=== PATIENT | female | born 1965 | race African-American/Black ===

== ENCOUNTER 2017-07-14 01:35 | Emergency (ER) | payer OTHER ==
[~2017-07-14] VITALS: Ht 152.4 cm; Wt 106.1 kg
[~2017-07-14 01:35] MED LIST: AMLO10TA2 PO; CLON0.1T PO; CYCL10TA2 PO; FURO-69 PO; FURO40TA4 PO; GABA-585 PO; GLIM2TAB2 PO; INSU100I17 SQ; INSU100I27 SQ; LOSA50TA6 PO; PENI500T PO; TRIA1TAB5 PO
[2017-07-14 01:54] VITALS: BP 189/88
[2017-07-14 02:41] LABS: BILIRUBIN,URINE NEGATIVE (NEG); GLUCOSE,URINE 100 mg/dL (NEG); NITRITE,URINE NEGATIVE (NEG); PROTEIN,URINE >=300 mg/dL (NEG-TRACE); UROBILINOGEN,URINE 0.2 mg/dL (0.2 mg/dL)
[2017-07-14 02:41] LABS: BASO % 0 % (0-3); EOS % 2 % (0-3); HEMATOCRIT 35.1 % (36.0-47.0); HEMOGLOBIN 11.6 g/dL (12.0-15.5); LYMPH % 19 % (24-48); MEAN CORPUSCULAR HEMOGLOBIN 28 pg (25-35); MEAN CORPUSCULAR HGB CONC 33 g/dL (31-37); MEAN CORPUSCULAR VOLUME 85 fL (79-100); MONO % 8 % (0-9); NEUT % 70 % (31-73); PLATELET COUNT 347 x10^3/uL (140-400); RED BLOOD COUNT 4.15 x10^6/uL (3.50-5.40); RED CELL DISTRIBUTION WIDTH 24.1 % (11.5-14.5); WHITE BLOOD COUNT 10.4 x10^3/uL (4.0-11.0)
[2017-07-14 02:52] LABS: CALCIUM 9.3 mg/dL (8.5-10.1); CREATININE 2.4 mg/dL (0.6-1.0); GFR 25.9; POTASSIUM 4.1 mmol/L (3.5-5.1)
[2017-07-14 02:53] LABS: BACTERIA,URINE FEW /HPF (0-FEW); SQUAMOUS EPITHELIAL CELL,UR MANY /LPF
[2017-07-14 02:58] LABS: ALBUMIN/GLOBULIN RATIO 0.6 (1.0-1.7); MAGNESIUM 1.9 mg/dL (1.8-2.4); TOTAL BILIRUBIN 0.3 mg/dL (0.2-1.0)
[2017-07-14] MEDS ORDERED: FUROSEMIDE 40 MG/4 ML VIAL. IVP ONE (03:00)
[2017-07-14 03:17] LABS: PLT ESTIMATE ADEQUATE (ADEQUATE)
[2017-07-14 03:18] LABS: ANISOCYTOSIS MOD
--- NOTE | 2017-07-14 03:20 | PHYS DOC ---
Past Medical History Past Medical History: Diabetes-Type II, Hypertension, Other Past Surgical History: Tubal ligation, Other Alcohol Use: None Drug Use: None Adult General Chief Complaint Chief Complaint: LOWER EXTREMITY SWELLING HPI HPI Patient is a 52 year old female presenting to the emergency department for evaluation of lower extremity edema. Patient reports that she has chronic issues with edema and renal insufficiency however she feels it is worse over the past 2 weeks. She has compression stockings and says that they helped very much when she wears them but she has not been wearing them recently. She says that they feel very tight and that she is gaining weight. Patient denies any chest pain shortness of breath diaphoresis nausea vomiting or diarrhea. She is in no obvious distress with normal vital signs except for her high blood pressure. Review of Systems Review of Systems Constitutional: Denies fever or chills [] Respiratory: Denies cough or shortness of breath [] Cardiovascular: No additional information not addressed in HPI [] GI: Denies abdominal pain, nausea, vomiting, bloody stools or diarrhea [] Neurologic: Denies headache, focal weakness or sensory changes [] Current Medications Current Medications Current Medications Medications (Trade) Dose Ordered Sig/Henry Start Time Stop Time Status Last Admin Dose Admin Furosemide (Lasix) 40 mg 1X ONCE 07/14/17 03:00 07/14/17 03:01 DC 07/14/17 03:13 40 MG Allergies Allergies Allergies Coded Allergies Type Severity Reaction Last Updated Verified No Known Drug Allergies 05/14/17 No Physical Exam Physical Exam Constitutional: Well developed, well nourished, no acute distress, non-toxic appearance. [] Cardiovascular:Heart rate regular rhythm, no murmur [] Lungs & Thorax: Bilateral breath sounds clear to auscultation [] Abdomen: Bowel sounds normal, soft, no tenderness, no masses, no pulsatile masses. [] Skin: Warm, dry, no erythema, no rash. [] Extremities: No tenderness, no cyanosis, no clubbing, ROM intact, 4+ BL LE edema. [] Neurologic: Alert and oriented X 3, normal motor function, normal sensory function, no focal deficits noted. [] Current Patient Data Vital Signs Vital Signs Date Time Temp Pulse Resp B/P (MAP) Pulse Ox O2 Delivery O2 Flow Rate FiO2 07/14/17 01:54 98.1 97 16 189/88 (121) 98 Room Air 98.1 Lab Values Laboratory Tests Test 07/14/17 01:43 07/14/17 02:30 Urine Collection Type Unknown Urine Color Yellow Urine Clarity Clear Urine pH 6.0 Urine Specific Chana 1.015 Urine Protein >=300 mg/dL (NEG-TRACE) Urine Glucose (UA) 100 mg/dL (NEG) Urine Ketones (Stick) Negative mg/dL (NEG) Urine Blood Small (NEG) Urine Nitrite Negative (NEG) Urine Bilirubin Negative (NEG) Urine Urobilinogen Dipstick 0.2 mg/dL (0.2 mg/dL) Urine Leukocyte Esterase Trace (NEG) Urine RBC 3-5 /HPF (0-2) Urine WBC 5-10 /HPF (0-4) Urine Squamous Epithelial Cells Many /LPF Urine Amorphous Sediment Present /HPF Urine Bacteria Few /HPF (0-FEW) White Blood Count 10.4 x10^3/uL (4.0-11.0) Red Blood Count 4.15 x10^6/uL (3.50-5.40) Hemoglobin 11.6 g/dL (12.0-15.5) L Hematocrit 35.1 % (36.0-47.0) L Mean Corpuscular Volume 85 fL (79-100) Mean Corpuscular Hemoglobin 28 pg (25-35) Mean Corpuscular Hemoglobin Concent 33 g/dL (31-37) Red Cell Distribution Width 24.1 % (11.5-14.5) H Platelet Count 347 x10^3/uL (140-400) Neutrophils (%) (Auto) 70 % (31-73) Lymphocytes (%) (Auto) 19 % (24-48) L Monocytes (%) (Auto) 8 % (0-9) Eosinophils (%) (Auto) 2 % (0-3) Basophils (%) (Auto) 0 % (0-3) Neutrophils # (Auto) 7.3 x10^3uL (1.8-7.7) Lymphocytes # (Auto) 2.0 x10^3/uL (1.0-4.8) Monocytes # (Auto) 0.8 x10^3/uL (0.0-1.1) Eosinophils # (Auto) 0.2 x10^3/uL (0.0-0.7) Basophils # (Auto) 0.0 x10^3/uL (0.0-0.2) Platelet Estimate Adequate (ADEQUATE) Anisocytosis Mod Sodium Level 137 mmol/L (136-145) Potassium Level 4.1 mmol/L (3.5-5.1) Chloride Level 103 mmol/L (98-107) Carbon Dioxide Level 22 mmol/L (21-32) Anion Gap 12 (6-14) Blood Urea Nitrogen 47 mg/dL (7-20) H Creatinine 2.4 mg/dL (0.6-1.0) H Estimated GFR (Cockcroft-Gault) 25.9 BUN/Creatinine Ratio 20 (6-20) Glucose Level 68 mg/dL (70-99) L Calcium Level 9.3 mg/dL (8.5-10.1) Magnesium Level 1.9 mg/dL (1.8-2.4) Total Bilirubin 0.3 mg/dL (0.2-1.0) Aspartate Amino Transferase (AST) 22 U/L (15-37) Alanine Aminotransferase (ALT) 26 U/L (14-59) Alkaline Phosphatase 95 U/L (46-116) MB-Uto-V-Type Natriuretic Peptide 166 pg/mL (0-124) H Total Protein 8.0 g/dL (6.4-8.2) Albumin 3.0 g/dL (3.4-5.0) L Albumin/Globulin Ratio 0.6 (1.0-1.7) L Laboratory Tests 07/14/17 02:30 Laboratory Tests 07/14/17 02:30 EKG EKG [] Radiology/Procedures Radiology/Procedures Ultrasound right lower extremity Indication: Right lower pain and swelling for one month Technique: Multiple real-time grayscale images were obtained over the right lower extremity with use of color Doppler imaging and spectral analysis. Specifically, evaluation of the common femoral, superficial femoral, popliteal, posterior tibial and greater saphenous veins is performed. Static images were submitted for interpretation. Findings: There is no evidence for deep venous thrombosis. There is normal color fill-in on Doppler images. There is also normal response to compression of the deep venous system. Subcutaneous edema seen within the calf region. Impression: No evidence for deep venous thrombosis. Electronically signed by: Kodi Arriaza MD (07/14/2017 3:18 AM) [facility] DICTATED and SIGNED BY: KODI ARRIAZA MD DATE: 07/14/17 0317 Course & Med Decision Making Course & Med Decision Making Patient with bilateral lower extremity edema likely from venous insufficiency and possibly some renal insufficiency. Her BNP is slightly elevated as well. BNP likely elevated from her renal insufficiency. Discussed need for outpatient echocardiogram to ensure her ejection fraction is okay. Renal insufficiency is baseline. Anemia is somewhat improved. Patient looks well overall except for her lower extremity edema which would likely improve from leg elevation in her compression stockings. I told her to follow with her landscape account manager which is Dr. Pierce later this week and continue taking her medications as prescribed and come back to the ED sooner with worsening pain shortness of breath lower extremity edema or other general concerns. Patient aware and agreeable with plan and verbalized understanding of the above instructions. Dragon Disclaimer Dragon Disclaimer This electronic medical record was generated, in whole or in part, using a voice recognition dictation system. Departure Departure Impression: Primary Impression: Lower extremity edema Additional Impressions: Renal insufficiency Elevated brain natriuretic peptide (BNP) level Disposition: 01 HOME, SELF-CARE Condition: GOOD Referrals: WONG DIEGO Jr, MD (PCP) Patient Instructions: Peripheral Edema Problem Qualifiers HALEIGH CORTEZ DO Jul 14, 2017 03:20
== END 2017-07-14 04:32 | disposition home or self-care (01) ==
LOC: ER 01:35
DX: R60.0 Localized edema (principal); N28.9 Disorder of kidney and ureter, unspecified; E11.9 Type 2 diabetes mellitus without complications; I10 Essential (primary) hypertension; Z98.51 Tubal ligation status
CPT/HCPCS: 36415; 80053; 81001; 83735; 83880; 85025; 87086; 93971; 96374; 99285; J1940

== ENCOUNTER → 2017-11-13 | Outpatient (CLI) | payer OTHER ==
[~2017-11-13] MED LIST changes: +CONTRAST GIVEN MC PRN; +IOHEXOL 240 MG/ML 50ML VIAL. PO ONE
--- NOTE | 2017-11-13 10:40 | RAD ---
CT of the abdomen and pelvis without contrast, 11/13/2017: History: Lymphedema, rule out obstructing mass No IV contrast was administered due to the patient's known renal insufficiency. Oral contrast material was given. The unopacified liver shows no abnormality. The gallbladder is unremarkable. No pancreatic abnormality is detected. The spleen is of normal size. It contains multiple calcified granulomata. A 2 cm low-density lesion in the upper pole of the right kidney is probably a cyst. The unopacified kidneys are otherwise unremarkable. The abdominal aorta is of normal size. No periaortic, pericaval or iliac adenopathy is seen. Bilateral inguinal lymph nodes are at the upper limits of normal in size measuring 13 to 14 mm in short axis dimensions. The uterus is at the upper limits of normal in size. No pelvic mass or unusual fluid collection is seen. The bowel loops are of normal caliber. The appendix is unremarkable. No free air or free fluid is evident in the abdomen or pelvis. There are mild scattered degenerative changes in the spine. Mild streaky increased density in the subcutaneous fat of the anterior abdominal wall is compatible with nonspecific edema or scarring, perhaps related to injections in this diabetic patient. IMPRESSION: 1. Inguinal lymph nodes of borderline size. 2. Small right renal cyst. 3. No acute intra-abdominal or pelvic abnormality is detected. PQRS Compliance Statement: One or more of the following individualized dose reduction techniques were utilized for this examination: 1. Automated exposure control 2. Adjustment of the mA and/or kV according to patient size 3. Use of iterative reconstruction technique
== END | disposition home or self-care (01) ==
LOC: CT 10:18
PROVIDERS: ATTEND Physical Medicine & Rehabilitation
DX: I89.0 Lymphedema, not elsewhere classified (principal); N28.1 Cyst of kidney, acquired
CPT/HCPCS: 74176; Q9966

== ENCOUNTER → 2018-09-11 | Outpatient (CLI) | payer OTHER ==
[~2018-09-11] MED LIST changes: -AMLO10TA2 PO; +AMLO10TA6 PO; -CONTRAST GIVEN MC PRN; -IOHEXOL 240 MG/ML 50ML VIAL. PO ONE; -LOSA50TA6 PO; +LOSA50TA7 PO
[2018-09-11 05:16] LABS: BASO # 0.1 x10^3/uL (0.0-0.2); BASO % 1 % (0-3); EOS # 0.2 x10^3/uL (0.0-0.7); EOS % 2 % (0-3); HEMATOCRIT 32.6 % (36.0-47.0); HEMOGLOBIN 10.7 g/dL (12.0-15.5); LYMPH # 2.1 x10^3/uL (1.0-4.8); LYMPH % 22 % (24-48); MEAN CORPUSCULAR HEMOGLOBIN 28 pg (25-35); MEAN CORPUSCULAR HGB CONC 33 g/dL (31-37); MEAN CORPUSCULAR VOLUME 86 fL (79-100); MONO # 0.6 x10^3/uL (0.0-1.1); MONO % 7 % (0-9); NEUT # 6.6 x10^3uL (1.8-7.7); NEUT % 69 % (31-73); PLATELET COUNT 458 x10^3/uL (140-400); RED BLOOD COUNT 3.78 x10^6/uL (3.50-5.40); RED CELL DISTRIBUTION WIDTH 15.5 % (11.5-14.5); WHITE BLOOD COUNT 9.6 x10^3/uL (4.0-11.0)
[2018-09-11 05:28] LABS: ALBUMIN 2.9 g/dL (3.4-5.0); ALBUMIN/GLOBULIN RATIO 0.5 (1.0-1.7); CALCIUM 9.2 mg/dL (8.5-10.1); CREATININE 3.7 mg/dL (0.6-1.0); GFR 15.6; POTASSIUM 3.9 mmol/L (3.5-5.1); TOTAL BILIRUBIN 0.2 mg/dL (0.2-1.0); TOTAL PROTEIN 8.2 g/dL (6.4-8.2)
[2018-09-12 16:34] LABS: HEMOGLOBIN A1C 7.7 % (4.8-5.6)
== END | disposition home or self-care (01) ==
LOC: LAB 05:02
PROVIDERS: ATTEND Obstetrics & Gynecology
DX: E11.65 Type 2 diabetes mellitus with hyperglycemia (principal); I10 Essential (primary) hypertension; D64.9 Anemia, unspecified; Z79.4 Long term (current) use of insulin
CPT/HCPCS: 36415; 80053; 83036; 84443; 85025

== ENCOUNTER → 2019-10-30 | Outpatient (CLI) | payer SELFPAY ==
[~2019-10-30] MED LIST changes: -AMLO10TA6 PO; +AMLO10TA8 PO; -GLIM2TAB2 PO; +GLIM2TAB3 PO; +LOSA-73 PO; -LOSA50TA7 PO
[2019-10-30 15:11] LABS: BASO # 0.1 x10^3/uL (0.0-0.2); BASO % 1 % (0-3); EOS # 0.2 x10^3/uL (0.0-0.7); EOS % 2 % (0-3); HEMATOCRIT 27.9 % (36.0-47.0); HEMOGLOBIN 9.2 g/dL (12.0-15.5); LYMPH % 18 % (24-48); MEAN CORPUSCULAR HEMOGLOBIN 29 pg (25-35); MEAN CORPUSCULAR HGB CONC 33 g/dL (31-37); MEAN CORPUSCULAR VOLUME 87 fL (79-100); MONO # 0.6 x10^3/uL (0.0-1.1); MONO % 5 % (0-9); NEUT # 8.4 x10^3/uL (1.8-7.7); NEUT % 74 % (31-73); PLATELET COUNT 441 x10^3/uL (140-400); RED BLOOD COUNT 3.22 x10^6/uL (3.50-5.40); WHITE BLOOD COUNT 11.3 x10^3/uL (4.0-11.0)
[2019-10-30 15:40] LABS: CALCIUM 9.2 mg/dL (8.5-10.1); CHOLESTEROL/HDL RATIO 4.4; CREATININE 7.8 mg/dL (0.6-1.0); GFR 6.6; POTASSIUM 4.3 mmol/L (3.5-5.1)
[2019-10-31 02:08] LABS: HEMOGLOBIN A1C 6.3 % (4.8-5.6)
== END | disposition home or self-care (01) ==
LOC: LAB 14:47
PROVIDERS: ATTEND Nurse Practitioner Family
DX: I12.9 Hypertensive chronic kidney disease with stage 1 through stage 4 chronic kidney disease, or unspecified chronic kidney disease (principal); E11.22 Type 2 diabetes mellitus with diabetic chronic kidney disease; N18.4 Chronic kidney disease, stage 4 (severe); Z79.4 Long term (current) use of insulin; Z28.21 Immunization not carried out because of patient refusal
CPT/HCPCS: 36415; 80048; 80061; 82043; 83036; 84443; 85025

== ENCOUNTER → 2019-11-28 | Outpatient (CLI) | payer SELFPAY ==
[~2019-11-28] MED LIST changes: -GLIM2TAB3 PO; +GLIM2TAB7 PO
[2019-11-28 15:42] LABS: BASO # 0.1 x10^3/uL (0.0-0.2); BASO % 1 % (0-3); EOS # 0.2 x10^3/uL (0.0-0.7); EOS % 2 % (0-3); HEMATOCRIT 28.7 % (36.0-47.0); HEMOGLOBIN 9.6 g/dL (12.0-15.5); LYMPH # 1.7 x10^3/uL (1.0-4.8); LYMPH % 15 % (24-48); MEAN CORPUSCULAR HEMOGLOBIN 29 pg (25-35); MEAN CORPUSCULAR HGB CONC 34 g/dL (31-37); MEAN CORPUSCULAR VOLUME 87 fL (79-100); MONO # 0.7 x10^3/uL (0.0-1.1); MONO % 7 % (0-9); NEUT # 8.1 x10^3/uL (1.8-7.7); NEUT % 75 % (31-73); PLATELET COUNT 409 x10^3/uL (140-400); RED BLOOD COUNT 3.31 x10^6/uL (3.50-5.40); RED CELL DISTRIBUTION WIDTH 15.2 % (11.5-14.5); WHITE BLOOD COUNT 10.8 x10^3/uL (4.0-11.0)
[2019-11-28 15:54] LABS: CALCIUM 8.9 mg/dL (8.5-10.1); CREATININE 7.1 mg/dL (0.6-1.0); GFR 7.3; POTASSIUM 4.1 mmol/L (3.5-5.1)
== END | disposition home or self-care (01) ==
LOC: LAB 15:18
PROVIDERS: ATTEND Nurse Practitioner Family
DX: E11.22 Type 2 diabetes mellitus with diabetic chronic kidney disease (principal)
CPT/HCPCS: 36415; 80048; 85025

== ENCOUNTER → 2020-09-20 | Outpatient (CLI) | payer OTHER ==
[~2020-09-20] MED LIST changes: +AMLO-187 PO; -AMLO10TA8 PO; +HYDR-3164 PO; +METO-239 PO
== END ==
LOC: LAB 14:11
PROVIDERS: ATTEND Surgery
DX: Z01.812 Encounter for preprocedural laboratory examination (principal); Z20.828 Contact with and (suspected) exposure to other viral communicable diseases
CPT/HCPCS: U0003

== ENCOUNTER 2020-09-24 08:39 | Day surgery (SDC) | payer OTHER ==
[~2020-09-24] VITALS: Ht 149.9 cm; Wt 101.2 kg
[~2020-09-24 08:39] MED LIST changes: +HEPARIN SODIUM 5,000 UNIT in IV NORMAL SALINE 500ML BAG 500 ML IRR ONE; -HYDR-3164 PO; +HYDROmorphone 2 MG/ML VIAL IV PRN; +IV RINGERS,LACTATED 1000ML 1,000 ML IV SCH; +LIDOCAINE 1% PF 2 ML VIAL. ID PRN; -METO-239 PO; +MORPHINE SULFATE 2 MG/ML VIAL. IV PRN; +ONDANSETRON PF 4 MG/2 ML VIAL. IV PRN; +PROCHLORPERAZINE 10 MG/2 ML VIAL. IV PRN; +fentaNYL PF VIAL 100 MCG/2 ML VIAL IV PRN
[2020-09-24] MEDS ORDERED: METO-239 PO (09:14)
[2020-09-24] MEDS ORDERED: DEXTROSE 50% 25 GM / 50ML DISP.SYRIN. IV ONE (09:21)
[2020-09-24] MEDS ORDERED: INSULIN LISPRO 100 UNIT/ML 3ML VIAL for OP,RR ONLY. SQ PRN (09:30)
[2020-09-24 10:42] LABS: CREATININE 10.3 mg/dL (0.6-1.0); GFR 4.8; POTASSIUM 4.4 mmol/L (3.5-5.1)
[2020-09-24 10:47] LABS: BASO # 0.1 x10^3/uL (0.0-0.2); BASO % 1 % (0-3); EOS # 0.1 x10^3/uL (0.0-0.7); EOS % 0 % (0-3); HEMATOCRIT 25.1 % (36.0-47.0); HEMOGLOBIN 8.3 g/dL (12.0-15.5); LYMPH # 0.8 x10^3/uL (1.0-4.8); LYMPH % 7 % (24-48); MEAN CORPUSCULAR HEMOGLOBIN 29 pg (25-35); MEAN CORPUSCULAR HGB CONC 33 g/dL (31-37); MEAN CORPUSCULAR VOLUME 87 fL (79-100); MONO # 0.5 x10^3/uL (0.0-1.1); MONO % 5 % (0-9); NEUT # 9.7 x10^3/uL (1.8-7.7); NEUT % 87 % (31-73); PLATELET COUNT 414 x10^3/uL (140-400); RED BLOOD COUNT 2.91 x10^6/uL (3.50-5.40); RED CELL DISTRIBUTION WIDTH 14.7 % (11.5-14.5); WHITE BLOOD COUNT 11.2 x10^3/uL (4.0-11.0)
[2020-09-24 11:28] LABS: % EOS 1 % (0-5); % LYMPHS 14 % (24-48); % MONOS 2 % (0-10); % SEGS 83 % (35-66)
[2020-09-24 11:29] LABS: PLT ESTIMATE INCREASED (ADEQUATE)
[2020-09-24] MEDS ORDERED: SURGICEL FIBRILLAR 1X2 EACH. ONE (11:36)
[2020-09-24] MEDS ORDERED: POVIDONE-IODINE 10% TOPICAL OINTMENT 28GM TUBE. TP ONE (11:36)
[2020-09-24] MEDS ORDERED: PROTAMINE 50 MG/5 ML VIAL. IV ONE (11:37)
[2020-09-24] MEDS ORDERED: THROMBIN TOPICAL 5,000 UNIT VIAL. ONE (11:37)
[2020-09-24] MEDS ORDERED: PAPAVERINE 60 MG/2 ML VIAL. ONE (11:37)
[2020-09-24] MEDS ORDERED: LIDOCAINE 1% PF 30 ML VIAL. ONE (11:37)
[2020-09-24] MEDS ORDERED: ROCURONIUM 50 MG/5 ML VIAL. ONE (11:38)
[2020-09-24] MEDS ORDERED: ONDANSETRON PF 4 MG/2 ML VIAL. ONE (11:38)
[2020-09-24] MEDS ORDERED: LIDOCAINE 2% PF 5 ML VIAL. ONE (11:38)
[2020-09-24] MEDS ORDERED: PROPOFOL 10 MG/ML (20ML) VIAL. IV ONE (11:38)
[2020-09-24] MEDS ORDERED: DEXAMETHASONE SOD PHOS 4 MG/ML VIAL ONE (11:38)
[2020-09-24] MEDS ORDERED: SEVOFLURANE 61 TO 120 MINUTES. IH ONE (11:38)
[2020-09-24] MEDS ORDERED: NEOSTIGMINE METHYLSULFATE 5 MG/5 ML SYRINGE. ONE (13:20)
[2020-09-24] MEDS ORDERED: GLYCOPYRROLATE 1 MG/5 ML VIAL. ONE (13:20)
[2020-09-24] MEDS ORDERED: HEPARIN for IV BOLUS 10,000 UNIT/10 ML VIAL. ONE (13:34)
--- NOTE | 2020-09-24 14:23 | DISCH ---
DISCHARGE INSTRUCTIONS Condition on Discharge Condition on Discharge: Stable Activity After Discharge Activity Instructions for Disc: Activity as tolerated Other activity instructions: elevate arm on pillows Lifting Instructions after Dis: No heavy lifting Diet after Discharge Diet after Discharge: Cardiac, Renal Non-Dialysis, Diabetic No Calorie Level Wound Incision Care Wound Care Equipment: Dressings (remove in 48 hours) Contacting the after DC Call your doctor for: If your condition worsens Follow-Up Follow up with: Dr. Fajardo 10/05/2020 1:15 [phone] ILENE SHEEHAN APRN Sep 24, 2020 14:23
--- NOTE | 2020-09-24 14:25 | PDOC ---
BRIEF OPERATIVE NOTE Date: Sep 24, 2020 Pre-Op Diagnosis Renal failure Post-Op Diagnosis same Procedure Performed Left brachial cephalic fistula Surgeon Dr. Fajardo Product Craftsman Ilene Sheehan NP Anesthesia Type: General Blood Loss 5cc Specimens Obtained none Findings adequate cephalic vein Complications none Operative Note see dictated note ILENE SHEEHAN GARMENT PRESSER Sep 24, 2020 14:25
--- NOTE | 2020-09-24 14:30 | OP ---
DATE OF SURGERY: 09/24/2020 PREOPERATIVE DIAGNOSIS: End-stage renal disease. POSTOPERATIVE DIAGNOSIS: End-stage renal disease. OPERATION PERFORMED: Left brachiocephalic AV fistula creation. SURGEON: Juan Spain MD SKID ADZER: Shavon Chambers APRN ANESTHESIA: General with supplemental focal anesthetic. OPERATIVE FINDINGS: The patient had preoperative vein mapping of the cephalic vein, which appeared to be continuous and patent from the antecubital fossa to the proximally all the way up to the axilla. The operation, risks, and benefits were explained to the patient. DESCRIPTION OF PROCEDURE: After general anesthetic was administered, the left arm was prepped and draped circumferentially. A vein mapping was performed. preprocedure. An incision was then made transversely and the cubital vein and the brachial artery were dissected. The brachial artery was encircled with vessel loops proximally and distally and the patient was given 3000 units of heparin. The cubital vein was then prepared for anastomosis. There were a couple of branches that were ligated and divided. One of the branches was used for the heel of the anastomosis. The vein flushed easily with heparinized saline. An arteriotomy was then made in the brachial artery and the vein was sutured end-to-side to the brachial artery using 7-0 Prolene. Loupe magnification was utilized. Prior to completing the anastomosis, the vessels were flushed appropriately. Flow was then instituted first into the vein and then distally. No protamine was given. The wound was irrigated with antibiotic irrigation, closed in 2 layers and Steri-Strips were applied. The patient had a satisfactory thrill over the outflow cephalic vein and tolerated the procedure well. ESTIMATED BLOOD LOSS: Minimal. DRAINS: None. SPECIMENS: None. JUAN SPAIN MD DR: DALE/jeremy JOB#: [id number] / [id number]
[2020-09-24 15:25] VITALS: BP 131/67
[2020-09-24] MEDS ORDERED: HYDR-3164 PO (15:54)
== END 2020-09-24 16:17 | disposition home or self-care (01) ==
LOC: SURG 08:39
PROVIDERS: ATTEND Surgery
DX: I12.0 Hypertensive chronic kidney disease with stage 5 chronic kidney disease or end stage renal disease (principal); E11.22 Type 2 diabetes mellitus with diabetic chronic kidney disease; N18.6 End stage renal disease; K21.9 Gastro-esophageal reflux disease without esophagitis; M19.90 Unspecified osteoarthritis, unspecified site; F41.9 Anxiety disorder, unspecified; Z98.51 Tubal ligation status; Z98.890 Other specified postprocedural states; Z79.82 Long term (current) use of aspirin; Z79.84 Long term (current) use of oral hypoglycemic drugs; Z79.899 Other long term (current) drug therapy; Z82.49 Family history of ischemic heart disease and other diseases of the circulatory system
CPT/HCPCS: 36415; 36821; 80048; 82962; 85007; 85025; A7015; J0690; J1100; J1644; J2405; J2704; J2710; J3490; J7040; J2440; J2720

== ENCOUNTER → 2020-11-17 | Outpatient (CLI) | payer OTHER ==
[~2020-11-17] MED LIST changes: +ASPI-630 PO; +CHOL500050 PO; +FURO80TA3 PO; -HEPARIN SODIUM 5,000 UNIT in IV NORMAL SALINE 500ML BAG 500 ML IRR ONE; +HYDR-3164 PO; -HYDROmorphone 2 MG/ML VIAL IV PRN; -IV RINGERS,LACTATED 1000ML 1,000 ML IV SCH; -LIDOCAINE 1% PF 2 ML VIAL. ID PRN; +METO-239 PO; +METO5TAB4 PO; -MORPHINE SULFATE 2 MG/ML VIAL. IV PRN; -ONDANSETRON PF 4 MG/2 ML VIAL. IV PRN; -PROCHLORPERAZINE 10 MG/2 ML VIAL. IV PRN; +SODI650T PO; -fentaNYL PF VIAL 100 MCG/2 ML VIAL IV PRN
== END ==
LOC: LAB 13:34
PROVIDERS: ATTEND Surgery
DX: Z01.812 Encounter for preprocedural laboratory examination (principal); N18.6 End stage renal disease; Z20.828 Contact with and (suspected) exposure to other viral communicable diseases
CPT/HCPCS: U0003

== ENCOUNTER 2020-11-22 10:47 | Day surgery (SDC) | payer OTHER ==
[~2020-11-22] VITALS: Ht 149.9 cm; Wt 102.0 kg
[~2020-11-22 10:47] MED LIST changes: +HEPARIN SODIUM 5,000 UNIT in IV NORMAL SALINE 500ML BAG 500 ML IRR ONE; +HYDROmorphone 2 MG/ML VIAL IV PRN; +INSULIN LISPRO 100 UNIT/ML 3ML VIAL for OP,RR ONLY. SQ PRN; +IV RINGERS,LACTATED 1000ML 1,000 ML IV SCH; +LIDOCAINE 1% Multi-Dose 20 ML VIAL. ONE; +LIDOCAINE 1% PF 2 ML VIAL. ID PRN; +MORPHINE SULFATE 2 MG/ML VIAL. IV PRN; +ONDANSETRON PF 4 MG/2 ML VIAL. IV PRN; +PAPAVERINE 60 MG/2 ML VIAL. ONE; +PROCHLORPERAZINE 10 MG/2 ML VIAL. IV PRN; +PROTAMINE 50 MG/5 ML VIAL. IV ONE; +SURGICEL FIBRILLAR 1X2 EACH. ONE; +THROMBIN TOPICAL 20,000 UNIT SPRAY.SYRN KIT TP ONE; +fentaNYL PF VIAL 100 MCG/2 ML VIAL IV PRN
[2020-11-22] MEDS ORDERED: IV NORMAL SALINE 1000ML BAG 1,000 ML IV ONE (11:30)
[2020-11-22 11:32] LABS: BASO # 0.1 x10^3/uL (0.0-0.2); BASO % 1 % (0-3); CALCIUM 9.9 mg/dL (8.5-10.1); CREATININE 10.9 mg/dL (0.6-1.0); EOS # 0.1 x10^3/uL (0.0-0.7); EOS % 1 % (0-3); GFR 4.5; HEMOGLOBIN 8.1 g/dL (12.0-15.5); LYMPH # 1.4 x10^3/uL (1.0-4.8); LYMPH % 13 % (24-48); MEAN CORPUSCULAR HEMOGLOBIN 28 pg (25-35); MEAN CORPUSCULAR HGB CONC 33 g/dL (31-37); MEAN CORPUSCULAR VOLUME 87 fL (79-100); MONO # 0.8 x10^3/uL (0.0-1.1); MONO % 7 % (0-9); NEUT # 8.7 x10^3/uL (1.8-7.7); NEUT % 78 % (31-73); PLATELET COUNT 417 x10^3/uL (140-400); POTASSIUM 4.6 mmol/L (3.5-5.1); RED BLOOD COUNT 2.86 x10^6/uL (3.50-5.40); RED CELL DISTRIBUTION WIDTH 15.9 % (11.5-14.5); WHITE BLOOD COUNT 11.1 x10^3/uL (4.0-11.0)
--- NOTE | 2020-11-22 12:03 | DISCH ---
DISCHARGE INSTRUCTIONS Condition on Discharge Condition on Discharge: Stable Activity After Discharge Activity Instructions for Disc: Activity as tolerated Other activity instructions: elevate arm on pillows Lifting Instructions after Dis: No heavy lifting Diet after Discharge Diet after Discharge: Cardiac, Renal Non-Dialysis, Diabetic No Calorie Level Wound Incision Care Wound Care Equipment: Dressings (may remove dressing in 48 hours) Contacting the DR. valdez DC Call your doctor for: Concerns you may have Follow-Up Follow up with: Dr. Fajardo in 2-3 weeks call for appointment [phone] ILENE SHEEHAN APRN Nov 22, 2020 12:03
[2020-11-22] MEDS ORDERED: MIDAZOLAM HCL/PF 2 MG/2 ML VIAL. ONE (13:18)
[2020-11-22] MEDS ORDERED: fentaNYL PF VIAL 250 MCG/5 ML VIAL ONE (13:18)
[2020-11-22] MEDS ORDERED: LIDOCAINE 2% PF 5 ML VIAL. ONE (13:29)
[2020-11-22] MEDS ORDERED: PROPOFOL 10 MG/ML (20ML) VIAL. IV ONE (13:29)
--- NOTE | 2020-11-22 14:21 | PDOC ---
BRIEF OPERATIVE NOTE Date: Nov 22, 2020 Pre-Op Diagnosis ESRD with arteriovenous fistula with large venous side branch Post-Op Diagnosis same Procedure Performed Left arm fistula with side branch ligation Surgeon Dr. Fonseca Shearer Operator Ilene Sheehan,LEAH Anesthesia Type: MAC, Local Blood Loss 5cc Specimens Obtained none Findings large side branch Complications none Operative Note see dictated note ILENE SHEEHAN PRINTER SLOTTER FEEDER Nov 22, 2020 14:21
[2020-11-22] MEDS ORDERED: HYDR-3164 PO (14:51)
[2020-11-22 14:58] VITALS: BP 181/82
--- NOTE | 2020-11-22 16:41 | OP ---
DATE OF SURGERY: 11/22/2020 PREOPERATIVE DIAGNOSIS: Status post left brachiocephalic arteriovenous fistula creation with predatory side branch. POSTOPERATIVE DIAGNOSIS: Status post left brachiocephalic arteriovenous fistula creation with predatory side branch. OPERATION PERFORMED: Revision of AV fistula requiring side branch ligation. SURGEON: Juan Spain MD. BAIL BOND AGENT: Shavon Chambers NP. ANESTHESIA: Local with monitored sedation. INDICATIONS: This is a 55-year-old female who underwent a left brachiocephalic AV fistula creation a couple of months ago. Followup ultrasound evaluation demonstrated a less than optimal flow rates through the cephalic vein and a very large side branch distally just proximal to the vein to arterial anastomosis. She presents for side branch ligation. DESCRIPTION OF PROCEDURE: The patient was placed in the supine position with the left arm abducted 90 degrees on an arm board. The large side branch was visualized with ultrasonography and the location of it was marked on the skin. Following this, the left arm was prepped and draped circumferentially. A timeout was called and the correct patient, correct operation and correct operative site were all verified. The patient received 2 grams of IV antibiotics. After infiltration with 1% lidocaine, a longitudinal incision was made over the palpable cephalic vein. This was carried down to the vein itself and the vein was dissected on its anterior aspect until the large lateral side branch was identified. The side branch was just as large as the cephalic vein. It was meticulously dissected and a 3-0 silk tie was placed around the side branch, which was then ligated. Flow was then checked with arterial ultrasound and there was augmented flow up to the cephalic vein into the arm. The wound was then irrigated and closed in layers with absorbable suture. Steri-Strips were applied. The patient tolerated the procedure well and was taken to the recovery room in satisfactory condition. ESTIMATED BLOOD LOSS: 5 mL. DRAINS: None. SPECIMENS: None. JUAN SPAIN MD DR: DALE/jeremy JOB#: [id number] / [id number]
== END 2020-11-22 15:18 | disposition home or self-care (01) ==
LOC: SURG 10:47
PROVIDERS: ATTEND Surgery
DX: I12.0 Hypertensive chronic kidney disease with stage 5 chronic kidney disease or end stage renal disease (principal); E11.22 Type 2 diabetes mellitus with diabetic chronic kidney disease; N18.6 End stage renal disease; E66.01 Morbid (severe) obesity due to excess calories; E11.65 Type 2 diabetes mellitus with hyperglycemia; E11.40 Type 2 diabetes mellitus with diabetic neuropathy, unspecified; F41.9 Anxiety disorder, unspecified; D50.9 Iron deficiency anemia, unspecified; K21.9 Gastro-esophageal reflux disease without esophagitis; M19.90 Unspecified osteoarthritis, unspecified site; Z79.82 Long term (current) use of aspirin; Z79.899 Other long term (current) drug therapy; Z79.4 Long term (current) use of insulin; Z98.890 Other specified postprocedural states; Z83.3 Family history of diabetes mellitus; Z68.42 Body mass index [BMI] 45.0-49.9, adult; Z87.898 Personal history of other specified conditions; Z98.51 Tubal ligation status; Z82.49 Family history of ischemic heart disease and other diseases of the circulatory system
CPT/HCPCS: 36415; 36832; 37607; 80048; 85025; J0690; J1644; J2250; J2704; J3010; J3490; J7040; J2440; J2720